=== PATIENT | female | born 1985 | race Caucasian/White ===

== ENCOUNTER → 2016-07-07 | Outpatient (REF) | payer BC ==
[2016-07-07 14:12] LABS: TOTAL PROTEIN 7.3 GM/DL (6.4-8.2)
[2016-07-09 11:15] LABS: ALBUMIN 4.41 GM/DL (3.29-5.55); ALBUMIN % 60.4 % (55.8-66.1); GAMMA GLOBULIN % 15.1 % (11.1-18.8)
== END ==
LOC: M LABNEURO 13:05
PROVIDERS: ATTEND Psychiatry & Neurology Neurology
DX: G50.0 Trigeminal neuralgia (principal)

== ENCOUNTER → 2019-02-14 | Outpatient (REF) | payer BC ==
[2019-02-14 13:19] LABS: INFLUENZA A AMPLIFICATION NEGATIVE (NEGATIVE); INFLUENZA B AMPLIFICATION NEGATIVE (NEGATIVE)
== END ==
LOC: M LAB REF 11:25
PROVIDERS: ATTEND Physician Assistant Medical
DX: J11.1 Influenza due to unidentified influenza virus with other respiratory manifestations (principal)

== ENCOUNTER → 2019-11-24 | Outpatient (REF) | payer BC | LOC: M SFHCWAGY 19:13 | PROVIDERS: ATTEND Advanced Practice Midwife | DX: Z12.4 Encounter for screening for malignant neoplasm of cervix (principal) | CPT/HCPCS: 87624; G0123 ==

== ENCOUNTER → 2019-12-12 | Outpatient (CLI) | payer BC ==
--- NOTE | 2019-12-21 17:10 | REP ---
PELVIC SONOGRAPHY HISTORY: Heavy vaginal bleeding. FINDINGS: Transabdominal and transvaginal scanning are performed. Uterine dimensions are normal at 8.2 x 3.6 x 4.3 cm. A 7-mm endometrial thickness is noted. There is a hyperechoic somewhat rounded area in the endometrium in the body of the uterus 9 x 4 x 5 mm in diameter. Cannot exclude an endometrial polyp. No focal uterine mass is seen. No free fluid is noted. Right ovary measures 2.9 x 1.7 x 2.5 cm. There are subcentimeter follicles. Normal Doppler flow is observed in the right ovary with resistive index of 0.49. Left ovary measures 3.9 x 2.5 x 2.6 cm. There is a 2.1 x 1.8 x 2.0 cm simple cyst and multiple subcentimeter follicles in the left ovary. Doppler flow is present in the left ovary as well with resistive index 0.5. IMPRESSION: Possible endometrial polyp. A 2.1 cm cyst left ovary. Otherwise, negative. MTDD
== END ==
LOC: M WHC 10:27
PROVIDERS: ATTEND Advanced Practice Midwife
DX: N92.0 Excessive and frequent menstruation with regular cycle (principal); N85.2 Hypertrophy of uterus; N83.202 Unspecified ovarian cyst, left side

== ENCOUNTER → 2022-03-11 | Outpatient (CLI) | payer OTHER ==
[~2022-03-11] MED LIST: FAMC250T PO; FERR325T19 PO; NEUR600T PO; PAME25CA PO; VYVA50CA4 PO
== END ==
LOC: M WHC 12:29
PROVIDERS: ATTEND Obstetrics & Gynecology
DX: N93.9 Abnormal uterine and vaginal bleeding, unspecified (principal)

== ENCOUNTER → 2022-03-19 | Outpatient (CLI) | payer OTHER | LOC: M LABSMTC 09:37 | PROVIDERS: ATTEND Anesthesiology | DX: Z01.818 Encounter for other preprocedural examination (principal); Z20.822 Contact with and (suspected) exposure to COVID-19 ==

== ENCOUNTER 2022-03-20 06:05 | Day surgery (SDC) | payer OTHER ==
[~2022-03-20] VITALS: Ht 175.3 cm; Wt 74.8 kg
[~2022-03-20 06:05] MED LIST changes: +LR 1,000 ML IV SCH
[2022-03-20] MEDS ORDERED: LIDOCAINE 1% SDV 5ML VIAL SC PRN (06:25)
[2022-03-20] MEDS ORDERED: LR 1,000 ML IV SCH (06:25)
[2022-03-20 06:53] LABS: HEMATOCRIT 30.5 % (36.0-47.0); HEMOGLOBIN 9.1 g/dl (12.0-15.5); MEAN CORPUSCULAR HEMOGLOBIN 23.5 pg (27.0-33.0); MEAN CORPUSCULAR HGB CONC 29.8 g/dl (32.0-36.5); MEAN CORPUSCULAR VOLUME 78.8 fl (80.0-96.0); PLATELET COUNT, AUTOMATED 186 10^3/uL (150-450); RED BLOOD COUNT 3.87 10^6/uL (4.00-5.40); WHITE BLOOD COUNT 3.4 10^3/uL (4.0-10.0)
[2022-03-20] MEDS ORDERED: LIDOCAINE 1% SDV 30ML VIAL As Ordered ONE (07:10)
[2022-03-20] MEDS ORDERED: KETOROLAC 60MG 2ML VIAL As Ordered ONE (07:35)
[2022-03-20] MEDS ORDERED: ACETAMINOPHEN 500 MG TAB PO PRN (07:35)
[2022-03-20] MEDS ORDERED: IBUPROFEN 600MG TAB PO PRN (07:35)
[2022-03-20] MEDS ORDERED: ONDANSETRON 4MG 2ML VIAL IV PRN (07:35)
[2022-03-20] MEDS ORDERED: LIDOCAINE 2% 100MG/5ML SDV (FOR ANES.) As Ordered ONE (07:35)
[2022-03-20] MEDS ORDERED: propofoL 200 MG/20 ML VIAL As Ordered ONE (07:35)
[2022-03-20] MEDS ORDERED: METOCLOPRAMIDE INJ 10MG/2ML VIAL IV PRN (07:35)
[2022-03-20] MEDS ORDERED: ONDANSETRON 4MG 2ML VIAL As Ordered ONE (07:35)
[2022-03-20] MEDS ORDERED: MIDAZOLAM INJ 2MG/2ML VIAL (J2250 PER 1MG) As Ordered ONE (07:35)
[2022-03-20] MEDS ORDERED: fentaNYL 100 MCG/2 ML INJECTION As Ordered ONE (07:35)
[2022-03-20 09:30] VITALS: BP 138/81
== END 2022-03-20 09:38 | disposition home or self-care (01) ==
LOC: M SDC 06:05
PROVIDERS: ATTEND Obstetrics & Gynecology
DX: N92.0 Excessive and frequent menstruation with regular cycle (principal); N84.0 Polyp of corpus uteri; G50.0 Trigeminal neuralgia; Z79.899 Other long term (current) drug therapy
CPT/HCPCS: 36415; 58558; 81025; 85027; 86850; 86900; 86901; 88305; J1100; J1885; J2250; J2405; J3010